=== PATIENT | male | born 1955 | race Caucasian/White ===

== ENCOUNTER 2017-09-13 21:50 | Emergency (ER) | payer BC ==
[~2017-09-13] VITALS: Ht 182.9 cm; Wt 104.3 kg
[2017-09-14] MEDS ORDERED: FLAGYL500MG PO (02:28)
[2017-09-14] MEDS ORDERED: TAMS0.4C PO (02:28)
[2017-09-14] MEDS ORDERED: LEVAQUIN750 MG PO (02:28)
== END 2017-09-14 02:44 | disposition home or self-care (01) ==
LOC: ER 21:50
DX: R33.8 Other retention of urine (principal); N30.80 Other cystitis without hematuria; N39.0 Urinary tract infection, site not specified

== ENCOUNTER 2017-09-15 13:20 | Emergency (ER) | payer BC ==
[~2017-09-15] VITALS: Ht 182.9 cm; Wt 108.0 kg
[~2017-09-15 13:20] MED LIST: FLAGYL500MG PO; LEVAQUIN750 MG PO; TAMS0.4C PO
== END 2017-09-15 20:15 | disposition home or self-care (01) ==
LOC: ER 13:20
DX: T83.091A Other mechanical complication of indwelling urethral catheter, initial encounter (principal); N39.0 Urinary tract infection, site not specified; R82.79 Other abnormal findings on microbiological examination of urine; Y73.1 Therapeutic (nonsurgical) and rehabilitative gastroenterology and urology devices associated with adverse incidents; Y92.89 Other specified places as the place of occurrence of the external cause